=== PATIENT | female | born 1990 | race Caucasian/White ===

== ENCOUNTER 2020-12-25 07:42 | Emergency (ER) | payer BC ==
[2020-12-25 08:39] LABS: HEMOGLOBIN 12.8 gm/dl (12.3-15.3); RED BLOOD COUNT 4.5 M/UL (4.00-5.10)
[2020-12-25 09:06] LABS: BUN/CREATININE RATIO 25 (0-10)
== END 2020-12-25 11:04 | disposition home or self-care (01) ==
LOC: ER1 07:42
PROVIDERS: Preventive Medicine Occupational Medicine
DX: R00.2 Palpitations (principal); R07.89 Other chest pain; I10 Essential (primary) hypertension; F17.210 Nicotine dependence, cigarettes, uncomplicated; Z90.89 Acquired absence of other organs
CPT/HCPCS: 71045; 80053; 82550; 82553; 83874; 84439; 84443; 84484; 85025; 93005; 99285